=== PATIENT | female | born 1985 | race Caucasian/White ===

== ENCOUNTER 2018-10-02 16:56 | Emergency (ER) | payer MEDICAID ==
[~2018-10-02] VITALS: Ht 172.7 cm; Wt 90.7 kg
[2018-10-02 17:00] VITALS: BP_SYST 140
--- NOTE | 2018-10-02 17:00 | NUR ---
BROUGHT BACK TO BED #5 AND TRIAGED. REPORT GIVEN TO JEAN
--- NOTE | 2018-10-02 17:18 | NUR ---
PATIENT CAME IN COMPLAINING OF COUGH FOR PAST 2 WEEKS. PATIENT STATES SHE TOOK ROBITUSSIN BUT DID NOT HELP. PATIENT STATES SHE HAS BEEN SPITING OUT A LITTLE BIT OF GREEN PHLEM. PATIENT STATES SHE HAS HAD HEADACHE FOR PAST 2 DAYS. PATIENT TOOK ADVIL THIS MORNING THAT HELPED. PATIENT COMPLAINING OF SORE THROAT BUT NO RUNNY NOSE OR EARACHE. PATIENT NOT COMPLAINING OF NAUSEA OR VOMITING. PATIENT ALERT AND ORIENTED X4.
--- NOTE | 2018-10-02 17:25 | NUR ---
JORDAN RAMIREZ at bedside examining patient.
[2018-10-02] MEDS ORDERED: IPRATROPIUM/ALBUTEROL SULFATE 3 ML AMPUL.NEB (DUONEB) INH ONE ×2 (17:30→18:00)
--- NOTE | 2018-10-02 17:40 | NUR ---
PATIENT STATES SHE FEELS ABOUT THE SAME AFTER BREATHING TREATMENT. DR RAMIREZ AWARE.
--- NOTE | 2018-10-02 17:51 | NUR ---
PATIENT GETTING X RAY IN BED.
[2018-10-02 18:28] VITALS: BP_SYST 136
--- NOTE | 2018-10-02 18:28 | NUR ---
Patient given written and verbal discharge instructions and verbalizes understanding. ER MD discussed with patient the results and treatment provided. Patient in stable condition. ID arm band removed. Rx of AZITHROMYCIN given. Patient educated on pain management and to follow up with PMD. Pain Scale 0/10. Opportunity for questions provided and answered. Medication side effect fact sheet provided.
== END 2018-10-02 18:28 | disposition home or self-care (01) ==
LOC: SED 16:56
DX: J06.9 Acute upper respiratory infection, unspecified (principal); R03.0 Elevated blood-pressure reading, without diagnosis of hypertension
CPT/HCPCS: 71045; 94640; 99284; J7620